=== PATIENT | male | born 1955 | race Caucasian/White ===

== ENCOUNTER 2022-09-29 10:00 | Inpatient (IN) ==
[2022-09-29] MEDS ORDERED: 0.9 % SODIUM CHLORIDE 1,000 ML IV ONE ×2 (10:02→12:09)
--- NOTE | 2022-09-29 10:10 | Emergency Department Note ---
HPI General Chief complaint: Trauma Stated complaint: trauma Time Seen by Provider: 09/29/22 10:02 Source: EMS Mode of arrival: ambulatory Limitations: altered mental status and other (Patient is on an oxygen mask and seems slightly confused) History of Present Illness HPI Narrative: Narrative: The patient is brought in by EMS for being found down. The last time the patient was seen was yesterday. Patient was found on the floor today. It is unknown how long he was down. It is unknown whether he fell or had a syncopal episode. Patient was initially hypotensive for paramedics. He was hypoxic but does have a history of lung cancer and is on oxygen chronically. Patient is noncontributory with history. He is not answering questions. Reportedly according to paramedics, patient had waxing and waning levels of consciousness. Further history is not obtainable. Related Data Previous Rx's Medication Instructions Recorded hydrocodone 5 mg-acetaminophen 325 See Rx Instructions PO Q6H PRN 09/16/22 mg tablet pain #20 tabs Allergies Allergy/AdvReac Type Severity Reaction Status Date / Time lorazepam [From Ativan] Allergy Mild Unknown Verified 09/29/22 10:06 Review of Systems ROS ROS Narrative: Narrative: Limitations: ROS unobtainable due to patients medical condition FOR[facility]LY [facility], [facility]1983 Narrative Patient History Narrative: Narrative: Medical/Surgical/Family History All Active Problems (Updated 09/29/22 @ 15:08 by Calin Sawyer MD) Fall (Acute) Contusion of face (Acute) Closed head injury (Acute) Metastatic primary lung cancer (Acute) Rhabdomyolysis (Acute) Pneumonia (Acute) Pain (Chronic) Shortness of breath (Chronic) Hypoxia (Chronic) Mass in neck (Chronic) Lung mass (Chronic) Medical History (Updated 09/29/22 @ 15:08 by Calin Sawyer MD) Hypoxia Lung mass Mass in neck Pain Shortness of breath Surgical History (Updated 09/16/22 @ 13:42 by Amy Berry) No history of previous surgery Family History (Updated 09/16/22 @ 13:40 by Amy Berry) Other No pertinent family history Social History Smoking Status: Current every day smoker Exam Narrative Narrative: Narrative: General Limitations: altered mental status and other (Patient is on an oxygen mask and seems slightly confused) General appearance: Present alert and in no apparent distress Head Head: Absent atraumatic (Soft tissue swelling on the left side of the face with left periorbital edema) or normal inspection Eye Eye: Present normal appearance, PERRL and EOMI ENT ENT: Present mucous membranes moist Neck Neck: Present normal inspection and trachea midline; Absent full ROM (Patient is in a cervical collar) or tenderness Chest Chest: Present normal inspection and symmetric chest wall rise; Absent tenderness Respiratory Respiratory: Present other (Coarse breath sounds throughout); Absent respiratory distress Cardiovascular Cardiovascular: Present normal rhythm, tachycardia and other (+2 pulses all 4 extremities) Adbominal Abdominal: Present soft and normal bowel sounds; Absent distention, tenderness or guarding Extremities Extremities: Present full ROM; Absent normal inspection (Skin tear on left upper extremity) or tenderness Back Back: Present full ROM; Absent tenderness, CVA tenderness (R) or CVA tenderness (L) Neurological Neurological: Present alert, CN II-XII intact and other (GCS 14); Absent oriented X3 (Awake but does not seem oriented) or motor sensory deficit Psychiatric Psychiatric: Present normal affect and normal mood Skin Skin: Present warm (WNL) and dry Course Reevaluation(s) Reevaluation #1: I was able to speak to the patient's daughter and sister. They both confirm that the patient is a DNI/DNR. I have informed them of the results and the plan to admit the patient. Time: 13:22 Reevaluation #2: I spoke to the patient's daughter and patient's sister again and they both have told me that they want the patient admitted here and do not expect any pulmonary or oncologic care. Time: 14:28 Consultations Consultation #1: I spoke to the hospitalist, Dr. Miller. He said that he would be fine admitting the patient locally as long as the family did not expect to have any further pulmonary or oncologic care. Time: 14:11 Consultation #2: I spoke to Dr. Parker again and he said he would evaluate the patient for local admission Time: 15:01 Vital Signs Vital signs: Vital Signs Temperature 99.7 F H 09/29/22 10:01 Pulse Rate 104 H 09/29/22 10:01 Respiratory Rate 15 09/29/22 10:01 Pulse Oximetry (%) 100 09/29/22 10:01 Oxygen Delivery Method Room Air 09/29/22 10:01 Oxygen Flow Rate (L/min) 14 09/29/22 10:01 Temperature 99.7 F H 09/29/22 10:01 Pulse Rate 95 H 09/29/22 15:18 Respiratory Rate 17 09/29/22 15:18 Blood Pressure 104/61 09/29/22 15:01 Pulse Oximetry (%) 100 09/29/22 15:18 Oxygen Delivery Method Nasal Cannula 09/29/22 11:24 Oxygen Flow Rate (L/min) 2 09/29/22 11:24 [facility] MDM Narrative Medical decision making narrative: Narrative: The patient is brought in after being found down. It is unknown whether he fell or had a syncopal episode. Patient is noncontributory with this history. Work- up will be geared twofold. First for the trauma. We will image his head, face, cervical spine, and get a chest x-ray. We will also run appropriate labs for possible syncopal episode. We will give a liter of fluid and check a CK level. Concern is possible rhabdomyolysis. Lab Data Lab results reviewed: Yes I reviewed the patient's lab results. 09/29/22 10:15 Labs: Lab Results 09/29/22 09/29/22 09/29/22 Range/Units 10:13 10:15 10:16 WBC 24.3 H (4.5-11.0) K/mcL RBC 4.33 L (4.63-6.08) M/mcL Hgb 13.7 (13.7-17.5) g/dL Hct 39.9 L (40.1-51.0) % POC Hct 42.0 (41-55) MCV 92.1 (80.0-100.0) fL MCH 31.6 (26.0-34.0) pg MCHC 34.3 (31.0-36.0) g/dL RDW 14.2 (11.5-14.5) % Plt Count 212 (140-440) K/mcL MPV 11.3 (8.8-12.5) fL Immature Gran % (Auto) 2.2 H (0.0-0.5) % Neut % (Auto) 79.2 H (38.0-78.0) % Lymph % (Auto) 0.7 L (15.5-49.0) % Pepin % (Auto) 17.7 H (1.0-12.0) % Eos % (Auto) 0.1 (0.0-7.0) % Baso % (Auto) 0.1 (0.0-2.0) % Lymph # (Auto) 0.17 L (1.50-4.80) K/mcL Pepin # (Auto) 4.30 H (0.10-0.90) K/mcL Eos # (Auto) 0.02 (0.00-0.70) K/mcL Baso # (Auto) 0.03 (0.00-0.30) K/mcL Immature Gran # 0.54 H (0.00-0.05) K/mcl Absolute Neutrophils 19.22 H (1.80-8.00) K/mcL PT (11.9-14.5) sec INR (0.9-1.1) APTT (20.0-37.0) sec POC VBG pH 7.29 L (7.32-7.42) POC VBG pCO2 at Temp 74.8 H* (41-51) POC VBG pO2 23 L (25-40) POC VBG HCO3 35.9 H (24-28) POC VBG Total CO2 38.0 H (25-29) POC Venous O2 Sat 30.0 L (40-70) POC VBG Base Excess 9.0 H* (-2-2) VBG Lactic Acid 4.5 H* (0.5-2) POC Sodium 129 L (133-145) POC Potassium 4.9 (3.3-5.1) POC Chloride 90 L (96-108) POC Total CO2 35.0 H (22-30) POC Anion Gap 10.0 (8.0-16.0) POC BUN 42 H (6-20) POC Creatinine 1.4 H (0.6-1.2) POC Glucose 130 H (70-105) POC WB Ioniz Calcium 1.57 H (1.16-1.32) Total Bilirubin (0.1-1.0) mg/dL Direct Bilirubin (<0.3) mg/dL AST (<40) U/L ALT (<40) U/L Alkaline Phosphatase (39-117) U/L Total Creatine Kinase (24-195) U/L Total Protein (5.9-8.4) gm/dL Albumin (3.2-5.2) gm/dL Globulin (2.2-3.7) gm/dL POC Troponin I (0.00-0.08) 09/29/22 09/29/22 09/29/22 Range/Units 10:18 10:20 10:59 WBC (4.5-11.0) K/mcL RBC (4.63-6.08) M/mcL Hgb (13.7-17.5) g/dL Hct (40.1-51.0) % POC Hct (41-55) MCV (80.0-100.0) fL MCH (26.0-34.0) pg MCHC (31.0-36.0) g/dL RDW (11.5-14.5) % Plt Count (140-440) K/mcL MPV (8.8-12.5) fL Immature Gran % (Auto) (0.0-0.5) % Neut % (Auto) (38.0-78.0) % Lymph % (Auto) (15.5-49.0) % Pepin % (Auto) (1.0-12.0) % Eos % (Auto) (0.0-7.0) % Baso % (Auto) (0.0-2.0) % Lymph # (Auto) (1.50-4.80) K/mcL Pepin # (Auto) (0.10-0.90) K/mcL Eos # (Auto) (0.00-0.70) K/mcL Baso # (Auto) (0.00-0.30) K/mcL Immature Gran # (0.00-0.05) K/mcl Absolute Neutrophils (1.80-8.00) K/mcL PT 14.5 (11.9-14.5) sec INR 1.1 (0.9-1.1) APTT 38.8 H (20.0-37.0) sec POC VBG pH (7.32-7.42) POC VBG pCO2 at Temp (41-51) POC VBG pO2 (25-40) POC VBG HCO3 (24-28) POC VBG Total CO2 (25-29) POC Venous O2 Sat (40-70) POC VBG Base Excess (-2-2) VBG Lactic Acid (0.5-2) POC Sodium (133-145) POC Potassium (3.3-5.1) POC Chloride (96-108) POC Total CO2 (22-30) POC Anion Gap (8.0-16.0) POC BUN (6-20) POC Creatinine (0.6-1.2) POC Glucose (70-105) POC WB Ioniz Calcium (1.16-1.32) Total Bilirubin 1.2 H (0.1-1.0) mg/dL Direct Bilirubin 0.7 H (<0.3) mg/dL AST 102 H (<40) U/L ALT 27 (<40) U/L Alkaline Phosphatase 60 (39-117) U/L Total Creatine Kinase 2278 H (24-195) U/L Total Protein 6.7 (5.9-8.4) gm/dL Albumin 2.5 L (3.2-5.2) gm/dL Globulin 4.2 H (2.2-3.7) gm/dL POC Troponin I 0.22 H (0.00-0.08) 09/29/22 09/29/22 Range/Units 13:23 15:04 WBC (4.5-11.0) K/mcL RBC (4.63-6.08) M/mcL Hgb (13.7-17.5) g/dL Hct (40.1-51.0) % POC Hct (41-55) MCV (80.0-100.0) fL MCH (26.0-34.0) pg MCHC (31.0-36.0) g/dL RDW (11.5-14.5) % Plt Count (140-440) K/mcL MPV (8.8-12.5) fL Immature Gran % (Auto) (0.0-0.5) % Neut % (Auto) (38.0-78.0) % Lymph % (Auto) (15.5-49.0) % Pepin % (Auto) (1.0-12.0) % Eos % (Auto) (0.0-7.0) % Baso % (Auto) (0.0-2.0) % Lymph # (Auto) (1.50-4.80) K/mcL Pepin # (Auto) (0.10-0.90) K/mcL Eos # (Auto) (0.00-0.70) K/mcL Baso # (Auto) (0.00-0.30) K/mcL Immature Gran # (0.00-0.05) K/mcl Absolute Neutrophils (1.80-8.00) K/mcL PT (11.9-14.5) sec INR (0.9-1.1) APTT (20.0-37.0) sec POC VBG pH 7.36 (7.32-7.42) POC VBG pCO2 at Temp 58.9 H (41-51) POC VBG pO2 27 (25-40) POC VBG HCO3 33.2 H (24-28) POC VBG Total CO2 35.0 H (25-29) POC Venous O2 Sat 46.0 (40-70) POC VBG Base Excess 8.0 H* (-2-2) VBG Lactic Acid 2.5 H (0.5-2) POC Sodium (133-145) POC Potassium (3.3-5.1) POC Chloride (96-108) POC Total CO2 (22-30) POC Anion Gap (8.0-16.0) POC BUN (6-20) POC Creatinine (0.6-1.2) POC Glucose (70-105) POC WB Ioniz Calcium (1.16-1.32) Total Bilirubin (0.1-1.0) mg/dL Direct Bilirubin (<0.3) mg/dL AST (<40) U/L ALT (<40) U/L Alkaline Phosphatase (39-117) U/L Total Creatine Kinase (24-195) U/L Total Protein (5.9-8.4) gm/dL Albumin (3.2-5.2) gm/dL Globulin (2.2-3.7) gm/dL POC Troponin I 0.25 H (0.00-0.08) Radiology Data Radiology results reviewed: Yes I reviewed the patient's radiology results. EKG Data EKG #1: EKG attestation: Yes I reviewed and interpreted this EKG. and Yes There are no EKG findings of acute coronary syndrome EKG results narrative: Sinus, rate 105, normal axis, normal intervals, narrow complex QRS, no acute ST or T changes worrisome for acute infarction or ischemia Discharge Plan Patient/Caregiver Discharge Instructions Pt seen by [facility] ENGINEER/PA only: No Clinical Impression: Fall Qualifiers: Encounter type: initial encounter Qualified Code(s): W19.XXXA - Unspecified fall, initial encounter Contusion of face Qualifiers: Encounter type: initial encounter Qualified Code(s): S00.83XA - Contusion of other part of head, initial encounter Closed head injury Qualifiers: Encounter type: initial encounter Qualified Code(s): S09.90XA - Unspecified in jury of head, initial encounter Metastatic primary lung cancer Qualifiers: Laterality: unspecified laterality Qualified Code(s): C34.90 - Malignant neoplasm of unspecified part of unspecified bronchus or lung Rhabdomyolysis Qualifiers: Rhabdomyolysis type: traumatic Encounter type: initial encounter Qualified Code(s): T79.6XXA - Traumatic ischemia of muscle, initial encounter Pneumonia Qualifiers: Pneumonia type: due to unspecified organism Laterality: unspecified laterality Lung location: unspecified part of lung Qualified Code(s): J18.9 - Pneumonia, unspecified organism Patient Disposition: Xfer As Inpt ([facility]) Condition: Serious Follow up with: Brady Covarrubias PA-C [Primary Care Provider] - Prescriptions: No Action hydrocodone-acetaminophen 5-325 mg tablet See Rx Instructions PO Q6H PRN (Reason: pain) Qty: 20 0RF Rx Instructions: 1-2 tabs orally every 6 hours PRN pain. Caution: may cause sedation.
[2022-09-29 10:19] LABS: POC Calcium, Ionized 1.57 (1.16-1.32); POC Creatinine 1.4 (0.6-1.2); POC Potassium 4.9 (3.3-5.1)
--- NOTE | 2022-09-29 11:06 | Cat Scan Report ---
INDICATION: fall COMPARISON: None. TECHNIQUE: Axial noncontrast-enhanced images through the brain. Sagittally and coronally reformatted images. FINDINGS: Cerebral hemispheres:Negative. No intra-axial abnormality. No intra-axial hematoma. No localized mass effect.Brain volume is within normal limits for age. Periventricular white matter is negative without significant attenuation abnormality. Brainstem and cerebellum:No intra-axial abnormality Extra-axial:No acute hemorrhage. No subdural or epidural hematoma. No subarachnoid hemorrhage. Basilar cisterns are normal Calvarial:No calvarial fracture. No lytic lesion Temporal bones are negative. No destructive lesions Soft tissue, orbits, sinuses:Orbits and visualized facial soft tissues and paranasal sinuses are negative IMPRESSION: Negative noncontrast enhanced brain CT scan The exam was performed using radiation dose optimization techniques including, but not limited to, automated exposure control, adjustment of the mA and/or kV according to patient size and use of iterative reconstruction technique. Interpreted and Authenticated by: Leighton Bright 09/29/22
--- NOTE | 2022-09-29 11:09 | Cat Scan Report ---
INDICATION: fall TECHNIQUE: Axial images through the facial bones. Sagittal and coronal reformatted images. COMPARISON: None. FINDINGS: Nasal bones:Negative. No fracture Orbits:No ocular injury. No intraorbital abnormality. No medial or inferior blowout fracture Zygomatic arches:Negative Maxilla:Negative maxilla and hard palate. No LeFort injury. Maxillary sinuses are negative. No air-fluid levels. Pterygoid plates are intact. Mandible:No mandibular fracture. Mandibular condyles are intact and in normal position with respect to the temporomandibular fossae Skull base:Negative temporal bones. Mastoid sinuses are negative. Middle ears are clear. No basilar skull fracture Facial soft tissues:No focal mass. No soft tissue gas or radiopaque foreign body. Paranasal sinuses:No air-fluid levels. Mild mucoperiosteal thickening within the maxillary sinuses consistent with mild inflammatory disease IMPRESSION: Negative maxillofacial CT scan The exam was performed using radiation dose optimization techniques including, but not limited to, automated exposure control, adjustment of the mA and/or kV according to patient size and use of iterative reconstruction technique. Interpreted and Authenticated by: Leighton Bright 09/29/22
--- NOTE | 2022-09-29 11:12 | Cat Scan Report ---
INDICATION: fALL COMPARISON: None. TECHNIQUE: Axial thin section images through the cervical spine. Sagittally and coronally reformatted images. The exam was performed using radiation dose optimization techniques including, but not limited to, automated exposure control, adjustment of the mA and/or kV according to patient size and use of iterative reconstruction technique. FINDINGS: Vertebral bodies, spinous processes:No vertebral body or spinous process fracture. No acute abnormality. Alignment is anatomic without anterolisthesis Normal odontoid process. No fracture. Occipital condyles and C1 are negative. No atlantoaxial subluxation. Facets:No perched or locked facet. No facet complex fracture. Disc spaces:Moderate to severe degenerative disc narrowing at C4-5, C5-6. Moderate disc narrowing at C6-7 Temporal bones:Negative. No basilar skull fracture Cervical soft tissues:Prominent atherosclerotic calcification in the proximal internal carotid artery bilaterally. Lung apices:Extensive pulmonary parenchymal abnormality. Chest CT scan has been ordered IMPRESSION: 1. Degenerative disc disease and facet arthropathy 2. Carotid artery calcification 3. No cervical spine fracture Interpreted and Authenticated by: Leighton Bright 09/29/22
--- NOTE | 2022-09-29 11:25 | Cat Scan Report ---
INDICATION: PNA/Fall COMPARISON: Previous chest CT scan dated 09/07/2022 TECHNIQUE: Axial noncontrast enhanced images through the chest. Sagittally and coronally reformatted images. MIP reformatted images. FINDINGS: Extensive soft tissue mass density in the right hilar region. Appearance is consistent with neoplasm. There is complete effacement of the right mainstem bronchus. Very little aeration in the right middle lobe, right lower lobe, and right upper lobe bronchi. Large mass is consistent with primary malignancy. Small cell carcinoma should be considered although non-small cell carcinoma is also possible. There is extensive mediastinal adenopathy. There is right supraclavicular adenopathy. Disseminated infiltrate throughout the right lung is most consistent with postobstructive pneumonia. Lymphangitic spread of metastases are possible. There are infiltrates in the left upper lobe. There are multiple pulmonary parenchymal nodules in the left lung consistent with metastases. There has been interval worsening since 09/07/2022. There is a small right pleural effusion. There is severe coronary artery calcification. Upper abdomen is negative. There is a compression deformity of the T11 vertebral body. This is unchanged. Thoracic spine is otherwise negative. No lytic lesions. IMPRESSION: 1. Very large soft tissue mass which is centered in the right hilar region. Appearance is consistent with primary malignancy. 2. Extensive mediastinal adenopathy. There is right supraclavicular adenopathy 3. Complete effacement of the right mainstem bronchus. 4. Extensive right lung infiltrate. Metastatic disease is possible but postobstructive pneumonia is favored. This is significantly worse than on previous examination 5. Left lung infiltrates and nodules consistent with metastases 6. Small right pleural effusion 7. Significant interval worsening since 09/07/2022 The exam was performed using radiation dose optimization techniques including, but not limited to, automated exposure control, adjustment of the mA and/or kV according to patient size and use of iterative reconstruction technique. Interpreted and Authenticated by: Leighton Bright 09/29/22
[2022-09-29] MEDS ORDERED: cefTRIAXone 1 GM VIAL IV ONE (11:29)
[2022-09-29] MEDS ORDERED: AZITHROMYCIN 500 MG in DEXTROSE 5% IN WATER 250 ML IV ONE (11:29)
[2022-09-29 11:59] LABS: Basophils # (Auto) 0.03 K/mcL (0.00-0.30); Basophils % (Auto) 0.1 % (0.0-2.0); Eosinophils # (Auto) 0.02 K/mcL (0.00-0.70); Eosinophils % (Auto) 0.1 % (0.0-7.0); Hematocrit 39.9 % (40.1-51.0); Hemoglobin 13.7 g/dL (13.7-17.5); Lymphocytes # (Auto) 0.17 K/mcL (1.50-4.80); Lymphocytes % (Auto) 0.7 % (15.5-49.0); Mean Cell Volume 92.1 fL (80.0-100.0); Mean Corpuscular HGB Conc 34.3 g/dL (31.0-36.0); Mean Platelet Volume 11.3 fL (8.8-12.5); Monocytes % (Auto) 17.7 % (1.0-12.0); Neutrophils % (Auto) 79.2 % (38.0-78.0); Platelet Count 212 K/mcL (140-440); RBC 4.33 M/mcL (4.63-6.08); Red Cell Distribution Width 14.2 % (11.5-14.5); WBC 24.3 K/mcL (4.5-11.0)
[2022-09-29 12:00] LABS: INR 1.1 (0.9-1.1); Partial Thromboplastin Time 38.8 sec (20.0-37.0); Prothrombin Time 14.5 sec (11.9-14.5)
[2022-09-29 12:11] LABS: ALT/SGPT 27 U/L (<40); AST/SGOT 102 U/L (<40); Albumin 2.5 gm/dL (3.2-5.2); Alkaline Phosphatase 60 U/L (39-117); Bilirubin,Direct 0.7 mg/dL (<0.3); Bilirubin,Total 1.2 mg/dL (0.1-1.0); Globulin 4.2 gm/dL (2.2-3.7)
[2022-09-29 12:58] LABS: Creatine Kinase 2278 U/L (24-195)
[2022-09-29] MEDS: 0.9 % SODIUM CHLORIDE 1,000 ML IV SCH ×2 (14:58→18:45)
--- NOTE | 2022-09-29 15:47 | Internal Med History&Physical ---
HPI History of Present Illness Patient information: Note initiated : 09/29/22 at 3:43 pm Service Date, if different from initiated Date: [] Patient: Jose Eduardo Gaines 67 y/o M admitted on for trauma. Chief Complaint: [] History of present illness: Mr. Gaines is a 67 year old male with history of extensive smoking, COPD, AZ, chronic back pain from previous back surgery, who had progressive enlarging right neck and supraclavicular mass, weight loss of about 50 pounds, poor appetite dating back 8 to 9 months, he presented to ER on 09/07 for shortness of breath, CT angiogram chest showed near complete occlusion of the right upper lobe and right middle lobe bronchus and partial occlusion of bronchus intermedius causing near complete postobstructive atelectasis and or pneumonia. Metastasis to mediastinum and left lung was also noted. A CT of the soft tissues neck with contrast showed multiple metastatic lymph nodes, predominately involving the base of the neck on the right side and supraclavicular fossa. Metastatic lymph nodes were also noted in the left side of the neck. Patient saw oncology Dr. Jose R Church on 09/22, and plan for right neck mass biopsy for today. Patient lives in [address] [place] [address], when daughter arrived at his house he was found on the floor, down time is unknown but it is suspected it was around 24 hours. It is unclear whether he had a fall or syncopal episode. Daughter reports patient has muffled speech at baseline, history is limited from patient due to speech and also mild encephalopathy. Daughter Christina helped with history. On presentation patient was in sepsis patient presented with respiratory rate of 30, tachycardia 101, hypoxia requiring 2 L nasal cannula oxygen. WBC 24, hemoglobin 13.7. VBG's with pH 7.29, PCO2 74, PO2 23, lactic acid 4.5, sodium 129 creatinine 1.4 up from baseline of 0.5, total bili 0.7, AST 102, ALT 27, alk phosphatase 60, creatinine kinase 2278, BNP 2 weeks ago was 541, troponin 0.22, 0.25. CT chest without contrast showed extensive soft tissue mass in the right hilar region consistent with neoplasm, near complete occlusion of right middle lobe, right lower lobe and right upper lobe, extensive mediastinal lymphadenopathy, right supraclavicular adenopathy consistent with lymphangitic spread of metastasis. Infiltrate in left upper lobe. Multiple pulmonary parenchymal nodules in left lung consistent with metastasis. There has been interval worsening since 09/07. Small right pleural effusion. Extensive discussion with patient and family, initially they were undecided as to whether they would like to be admitted here eventually after reassurance and answering all their questions they decided for patient to be admitted here. Review of system. 14 point review of system obtained was negative except mentioned above. Patient reported some shortness of breath, pain in right side of the neck, cough. Denied any vomiting, chest pain, nausea or vomiting. No dizziness. He denies any depression. He reports weight loss, poor appetite. General General appearance: Patient appears chronically ill, his speech is muffled, he is in mild distress, he is also slightly confused but appears overall comfortable Head Head: (Soft tissue swelling on the left side of the face with left periorbital edema Eye Eye: Present normal appearance, PERRL and EOMI ENT ENT: Dry oral mucosa Neck Neck: Some limitation of range of motion because of right neck mass. The area is thickened and there is large firm mass consistent with metastatic lymphadenopathy Chest Chest: Present normal inspection and symmetric chest wall rise; Absent tenderness Respiratory Respiratory: Present other (Coarse breath sounds throughout); on supplemental oxygen, some wheeze bilaterally, decreased air entry in right base Cardiovascular Cardiovascular: Present normal rhythm, tachycardia and other (+2 pulses all 4 extremities), systolic murmur, no peripheral edema Adbominal Abdominal: Present soft and normal bowel sounds; Absent distention, tenderness or guarding Extremities Extremities: Present full ROM; Absent normal inspection (Skin tear on left upper extremity) or tenderness Back Back: Present full ROM; Absent tenderness, CVA tenderness (R) or CVA tenderness (L) Neurological Neurological: Present alert, CN II-XII intact and other (GCS 14); Absent oriented X3 (Awake but does not seem oriented) or motor sensory deficit Psychiatric Psychiatric: Present normal affect and normal mood Skin Skin: Present warm (WNL) and dry Assessment and plan Sepsis. Patient presented with tachycardia heart rate 101, respiratory rate 30, hypoxia requiring 2 L nasal cannula oxygen, leukocytosis 24,000, lactic acidosis 4.5 and source of infection. Postobstructive pneumonia. CT chest without contrast showed extensive soft tissue mass in the right hilar region consistent with neoplasm, near complete occlusion of right middle lobe, right lower lobe and right upper lobe, extensive mediastinal lymphadenopathy, right supraclavicular adenopathy consistent with lymphangitic spread of metastasis. Infiltrate in left upper lobe. Multiple pulmonary parenchymal nodules in left lung consistent with metastasis. There has been interval worsening since 09/07. Small right pleural. We will start patient on Zosyn, vancomycin, azithromycin and also steroid to help with occlusion. Sputum culture. Blood cultures. Clinically metastatic lung cancer, with mets to left lung, bilateral supraclavicular and right cervical mass likely metastatic, not fully staged, clinically stage IV. Clinical and radiological findings are consistent with non-small cell carcinoma of lung. 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 Will obtain MRI brain with and without contrast. CT of abdomen and pelvis for staging, both ordered. Acute encephalopathy. Likely multifactorial in the setting of sepsis, pneumonia, metastatic lung disease, hypercapnia and respiratory failure Alejandro syndrome, patient has anisocoria, likely secondary to right apex and neck metastatic involvement. MRI brain to rule out brain mets. Acute hypoxic hypercapnic respiratory failure. Patient has COPD. VBG's with pH 7.29, PCO2 74, PO2 23. Will manage with DuoNebs, budesonide, IV steroids, supplemental oxygen, pulmonary toileting. Dehydration. Patient has not been eating and drinking per family. Patient has dry tongue. Some acute kidney injury. Will give IV fluids. Hyponatremia sodium 129. Expected to improve with hydration. Acute kidney injury. Creatinine 1.4 up from baseline of 0.5. Will hydrate and monitor BMP and lites Acute Rhabdomyolysis. Creatinine kinase 2278. Patient received IV fluids and this will be continued. Troponin elevation. Patient has history of AZ. This is likely demand mediated ischemia type II AZ. EKG with sinus tachycardia with PVC and nonspecific ST-T wave changes. Will monitor on telemetry. Trend troponins. Echocardiogram Suspect CHF. Patient has some puffiness around the eyes but no peripheral edema. He also has a murmur on cardiac exam. Will obtain echocardiogram COPD from years of cigarette smoking. Patient with acute exacerbation. Will manage with IV steroids. DuoNebs, budesonide, pulmonary toileting. Patient smokes a pack a day currently, he used to smoke 2 packs of cigarettes per day for over 50+ years. Right seventh rib posttraumatic fracture. With significant pain. Continue hydrocodone as needed. Alcohol dependence. Patient has mentioned he can drink up to 5-6 beers daily. Will monitor for alcohol withdrawal. Tobacco dependence. Counseled on cessation. Offered nicotine patch, patient refused. Goals of care. Patient wishes to be DNR/DNI. Discussed in detail with patient and with accompanying daughter Christina, patient prognosis is grim. Discussed treatment options including inpatient pulmonology/bronchoscopy, oncology. They do not want patient to go to a higher level of care where pulmonology and oncology may be available. They understand that patient will be treated with antibiotics and pneumonia may not be cleared because of postobstructive and in that case they will discuss the goals of care again and may opt for comfort care. Critical care time 80 minutes. PFSH PFSH All Active Problems (Updated 09/29/22 @ 15:08 by Calin Sawyer MD) Fall (Acute) Contusion of face (Acute) Closed head injury (Acute) Metastatic primary lung cancer (Acute) Rhabdomyolysis (Acute) Pneumonia (Acute) Pain (Chronic) Shortness of breath (Chronic) Hypoxia (Chronic) Mass in neck (Chronic) Lung mass (Chronic) Medical History (Updated 09/29/22 @ 15:08 by Calin Sawyer MD) Hypoxia Lung mass Mass in neck Pain Shortness of breath Surgical History (Updated 09/16/22 @ 13:42 by Amy Berry) No history of previous surgery Family History (Updated 09/16/22 @ 13:40 by Amy Berry) Other No pertinent family history Social History smoking status: Current every day smoker MEDS/ALLERGIES Home Medications and Allergies Home Medications Medication Instructions Recorded Confirmed Type hydrocodone 5 mg-acetaminophen 325 See Rx Instructions PO Q6H PRN 09/16/22 09/29/22 Rx mg tablet pain #20 tabs Allergies Allergy/AdvReac Type Severity Reaction Status Date / Time lorazepam [From Ativan] Allergy Mild Unknown Verified 09/29/22 10:06 EXAM Constitutional Vitals: Temp Pulse Resp BP Pulse Ox O2 Del Method O2 Flow Rate 99.7 F H 95 H 17 104/61 100 Nasal Cannula 2 09/29/22 10:01 09/29/22 15:18 09/29/22 15:18 09/29/22 15:01 09/29/22 15:18 09/29/22 11:24 09/29/22 11:24 DATA Data Completed and Pending Labs: Labs from last 24 hours 09/29/22 09/29/22 09/29/22 15:04 13:23 10:59 WBC RBC Hgb Hct POC Hct MCV MCH MCHC RDW Plt Count MPV Immature Gran % (Auto) Neut % (Auto) Lymph % (Auto) Wallace % (Auto) Eos % (Auto) Baso % (Auto) Lymph # (Auto) Wallace # (Auto) Eos # (Auto) Baso # (Auto) Immature Gran # Absolute Neutrophils PT INR APTT POC VBG pH 7.36 POC VBG pCO2 at Temp 58.9 H POC VBG pO2 27 POC VBG HCO3 33.2 H POC VBG Total CO2 35.0 H POC Venous O2 Sat 46.0 POC VBG Base Excess 8.0 H* VBG Lactic Acid 2.5 H POC Sodium POC Potassium POC Chloride POC Total CO2 POC Anion Gap POC BUN POC Creatinine POC Glucose POC WB Ioniz Calcium Total Bilirubin 1.2 H Direct Bilirubin 0.7 H AST 102 H ALT 27 Alkaline Phosphatase 60 Total Creatine Kinase 2278 H Total Protein 6.7 Albumin 2.5 L Globulin 4.2 H POC Troponin I 0.25 H 09/29/22 09/29/22 09/29/22 10:20 10:18 10:16 WBC RBC Hgb Hct POC Hct 42.0 MCV MCH MCHC RDW Plt Count MPV Immature Gran % (Auto) Neut % (Auto) Lymph % (Auto) Wallace % (Auto) Eos % (Auto) Baso % (Auto) Lymph # (Auto) Wallace # (Auto) Eos # (Auto) Baso # (Auto) Immature Gran # Absolute Neutrophils PT 14.5 INR 1.1 APTT 38.8 H POC VBG pH POC VBG pCO2 at Temp POC VBG pO2 POC VBG HCO3 POC VBG Total CO2 POC Venous O2 Sat POC VBG Base Excess VBG Lactic Acid POC Sodium 129 L POC Potassium 4.9 POC Chloride 90 L POC Total CO2 35.0 H POC Anion Gap 10.0 POC BUN 42 H POC Creatinine 1.4 H POC Glucose 130 H POC WB Ioniz Calcium 1.57 H Total Bilirubin Direct Bilirubin AST ALT Alkaline Phosphatase Total Creatine Kinase Total Protein Albumin Globulin POC Troponin I 0.22 H 09/29/22 09/29/22 10:15 10:13 WBC 24.3 H RBC 4.33 L Hgb 13.7 Hct 39.9 L POC Hct MCV 92.1 MCH 31.6 MCHC 34.3 RDW 14.2 Plt Count 212 MPV 11.3 Immature Gran % (Auto) 2.2 H Neut % (Auto) 79.2 H Lymph % (Auto) 0.7 L Wallace % (Auto) 17.7 H Eos % (Auto) 0.1 Baso % (Auto) 0.1 Lymph # (Auto) 0.17 L Wallace # (Auto) 4.30 H Eos # (Auto) 0.02 Baso # (Auto) 0.03 Immature Gran # 0.54 H Absolute Neutrophils 19.22 H PT INR APTT POC VBG pH 7.29 L POC VBG pCO2 at Temp 74.8 H* POC VBG pO2 23 L POC VBG HCO3 35.9 H POC VBG Total CO2 38.0 H POC Venous O2 Sat 30.0 L POC VBG Base Excess 9.0 H* VBG Lactic Acid 4.5 H* POC Sodium POC Potassium POC Chloride POC Total CO2 POC Anion Gap POC BUN POC Creatinine POC Glucose POC WB Ioniz Calcium Total Bilirubin Direct Bilirubin AST ALT Alkaline Phosphatase Total Creatine Kinase Total Protein Albumin Globulin POC Troponin I A/P Time Spent With Patient Time: Total time spent is greater than 50% in coordination of care (as documented) at patient's floor/unit and/or counseling patient:
[2022-09-29] MEDS ORDERED: HYDROmorphone 0.5 MG/0.5 ML SYRINGE IV PRN (16:18)
--- NOTE | 2022-09-29 17:08 | Cat Scan Report ---
INDICATION: Metastatic lung disease, COMPARISON: Previous chest CT scan dated 09/29/2022 TECHNIQUE: Axial images were obtained through the abdomen and pelvis. Sagittally and coronally reformatted images. FINDINGS: Examination is markedly suboptimal due to patient cachexia, inability to raise his arms, patient motion, and lack of intravenous contrast material Lung bases:Large right pleural fluid collection. There is right lower lobe infiltrate and a large right hilar and perihilar mass. There is a 5 mm noncalcified left lower lobe nodule, image 26 Liver:Negative to the limits of noncontrast enhanced examination. Liver contour is smooth without evidence for cirrhosis Gallbladder, bilary:No calcified gallstones. No gallbladder wall thickening. No pericholecystic fluid. No dilated bile ducts Spleen:No splenomegaly Pancreas:No pancreatic mass. No peripancreatic abnormality Adrenal glands:Negative Kidneys,ureters,bladder:There are calcifications in both kidneys most consistent with vascular calcifications. There is no hydronephrosis. No hydroureter. No ureteral calculus. There is a catheter within the urinary bladder. Gastrointestinal:No detectable colonic mass. There is no diverticulitis. Negative small bowel. No mechanical small bowel obstruction. No bowel wall thickening. No focal abnormality. Negative stomach and duodenum. No focal abnormality. Appendix: The appendix is nonvisualized. No evidence for appendicitis Vascular:Severe calcified atherosclerosis. Ectasia of the infrarenal abdominal aorta. Maximum AP dimension measures 2.5 cm. Dense calcification at the origin of the superior mesenteric artery with probable hemodynamically significant stenosis. There is extensive calcification of the common iliac arteries and external iliac arteries Lymphatic:No retroperitoneal adenopathy. No significant mesenteric adenopathy. Mesentery, peritoneum:No free intraperitoneal fluid. No intra-abdominal abscess. No pneumoperitoneum Reproductive:Prostate is not significantly enlarged Musculoskeletal:There is a compression deformity of the T11 vertebral body. No detectable lytic or sclerotic metastases. Lumbar vertebral body heights are maintained. No compression fractures. Sacrum and pelvis are negative. No anterior abdominal wall or inguinal hernia. IMPRESSION: 1. Cachexia 2. Large right pleural effusion. Right pulmonary mass and extensive infiltrate as described in a separate dictation. 5 mm noncalcified left lower lobe nodule 3. Extensive atherosclerotic disease. 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 There is ectasia of the abdominal aorta without significant aneurysmal dilatation 4. T11 compression deformity The exam was performed using radiation dose optimization techniques including, but not limited to, automated exposure control, adjustment of the mA and/or kV according to patient size and use of iterative reconstruction technique. Interpreted and Authenticated by: Leighton Bright 09/29/22
[2022-09-29] MEDS ORDERED: LACTULOSE 20 GM/30 ML ORAL.SOL PO PRN (17:31)
[2022-09-29] MEDS ORDERED: methylPREDNISolone SOD SUCC 40 MG/ML VIAL IV SCH (17:31)
[2022-09-29] MEDS ORDERED: MAGNESIUM HYDROXIDE 30 ML ORAL.SUSP PO PRN (17:31)
[2022-09-29] MEDS ORDERED: PIPERACILLIN SODIUM/TAZOBACTAM 3.375 GM in DEXTROSE 5% IN WATER 50 ML IV SCH ×2 (17:31→18:00)
[2022-09-29] MEDS ORDERED: SENNOSIDES 1 TABLET PO PRN (17:31)
[2022-09-29] MEDS ORDERED: ONDANSETRON 4 MG/2 ML VIAL IV PRN (17:31)
[2022-09-29] MEDS ORDERED: FLEETS ADULT ENEMA PR PRN (17:31)
[2022-09-29] MEDS ORDERED: ACETAMINOPHEN 325 MG TABLET PO PRN (17:31)
[2022-09-29] MEDS ORDERED: HYDROcodone/APAP 5/325MG TABLET PO PRN (17:38)
[2022-09-29 18:46] LABS: Basophils # (Auto) 0.04 K/mcL (0.00-0.30); Basophils % (Auto) 0.2 % (0.0-2.0); Eosinophils # (Auto) 0.06 K/mcL (0.00-0.70); Eosinophils % (Auto) 0.2 % (0.0-7.0); Hematocrit 39.3 % (40.1-51.0); Hemoglobin 13.2 g/dL (13.7-17.5); Lymphocytes # (Auto) 0.16 K/mcL (1.50-4.80); Lymphocytes % (Auto) 0.6 % (15.5-49.0); Mean Cell Volume 95.4 fL (80.0-100.0); Mean Corpuscular HGB Conc 33.6 g/dL (31.0-36.0); Mean Platelet Volume 10.5 fL (8.8-12.5); Monocytes # (Auto) 4.21 K/mcL (0.10-0.90); Monocytes % (Auto) 17.1 % (1.0-12.0); Neutrophils % (Auto) 80.4 % (38.0-78.0); Platelet Count 203 K/mcL (140-440); RBC 4.12 M/mcL (4.63-6.08); Red Cell Distribution Width 14.4 % (11.5-14.5); WBC 24.7 K/mcL (4.5-11.0)
[2022-09-29 18:53] LABS: ALT/SGPT 31 U/L (<40); AST/SGOT 115 U/L (<40); Albumin 2.6 gm/dL (3.2-5.2); Albumin/Globulin Ratio 0.7 (1.0-2.3); Alkaline Phosphatase 55 U/L (39-117); Bilirubin,Total 0.8 mg/dL (0.1-1.0); Blood Urea Nitrogen 31 mg/dL (8-23); Calcium 12.7 mg/dL (8.6-10.4); Carbon Dioxide 29 mmol/L (22-30); Chloride 94 mmol/L (96-108); Globulin 3.8 gm/dL (2.2-3.7); Glomerular Filtration Rate 97; Glucose 116 mg/dL (70-105)
[2022-09-29] MEDS ORDERED: VANCOMYCIN 1,000 MG in 0.9 % SODIUM CHLORIDE 250 ML IV SCH (19:00)
[2022-09-29] MEDS ORDERED: IPRATROPIUM/ALBUTEROL 3 ML AMPUL.NEB NEB SCH (19:00)
--- NOTE | 2022-09-29 19:11 | Discharge Summary ---
Discharge Provider Provider IMPORTANT FOLLOW-UP INFORMATION FOR PCP: Patient information: Note initiated : 09/29/22 at 7:06 pm Service Date, if different from initiated Date: [] Patient: Jose Eduardo Gaines 67 y/o M admitted on 09/29/22 for trauma. Chief Complaint: [] Date of admission: 09/29/22 17:00 Discharge date: 09/29/22 Primary care physician: Brady Covarrubias PA-C Consults: 09/29/22 Consult to Physician [CONS] Stat Comment: Consulting Provider: Yash Miller Reason For Exam: Physician to Consult COURSE Hospital Course Hospital course: History of present illness: Mr. Gaines is a 67 year old male with history of extensive smoking, COPD, CO, chronic back pain from previous back surgery, who had progressive enlarging right neck and supraclavicular mass, weight loss of about 50 pounds, poor appetite dating back 8 to 9 months, he presented to ER on 09/07 for shortness of breath, CT angiogram chest showed near complete occlusion of the right upper lobe and right middle lobe bronchus and partial occlusion of bronchus intermedius causing near complete postobstructive atelectasis and or pneumonia. Metastasis to mediastinum and left lung was also noted. A CT of the soft tissues neck with contrast showed multiple metastatic lymph nodes, predominately involving the base of the neck on the right side and supraclavicular fossa. Metastatic lymph nodes were also noted in the left side of the neck. Patient saw oncology Dr. Jose R Church on 09/22, and plan for right neck mass biopsy for today. Patient lives in [address] [place] [address], when daughter arrived at his house he was found on the floor, down time is unknown but it is suspected it was around 24 hours. It is unclear whether he had a fall or syncopal episode. Daughter reports patient has muffled speech at baseline, history is limited from patient due to speech and also mild encephalopathy. Daughter Christina helped with history. On presentation patient was in sepsis patient presented with respiratory rate of 30, tachycardia 101, hypoxia requiring 2 L nasal cannula oxygen. WBC 24, hemoglobin 13.7. VBG's with pH 7.29, PCO2 74, PO2 23, lactic acid 4.5, sodium 129 creatinine 1.4 up from baseline of 0.5, total bili 0.7, AST 102, ALT 27, alk phosphatase 60, creatinine kinase 2278, BNP 2 weeks ago was 541, troponin 0.22, 0.25. CT chest without contrast showed extensive soft tissue mass in the right hilar region consistent with neoplasm, near complete occlusion of right middle lobe, right lower lobe and right upper lobe, extensive mediastinal lymphadenopathy, right supraclavicular adenopathy consistent with lymphangitic spread of metastasis. Infiltrate in left upper lobe. Multiple pulmonary parenchymal nodules in left lung consistent with metastasis. There has been interval worsening since 09/07. Small right pleural effusion. Extensive discussion with patient and family, initially they were undecided as to whether they would like to be admitted here eventually after reassurance and answering all their questions they decided for patient to be admitted here. Patient was admitted to PCU. He was started on IV antibiotics, IV Solu-Medrol. CT scan abdomen and pelvis and showed large right pleural effusion but no evidence of metastatic disease in abdomen. Patient was terminal but comfortable. His breathing slowed down and he had brief episode of V-fib and he peacefully at 1701. His daughter Christina was present at the time. She was offered support. Discharge diagnoses Sepsis. Patient presented with tachycardia heart rate 101, respiratory rate 30, hypoxia requiring 2 L nasal cannula oxygen, leukocytosis 24,000, lactic acidosis 4.5 and source of infection. Postobstructive pneumonia.CT chest without contrast showed extensive soft tissue mass in the right hilar region consistent with neoplasm, near complete occlusion of right middle lobe, right lower lobe and right upper lobe, extensive mediastinal lymphadenopathy, right supraclavicular adenopathy consistent with lymphangitic spread of metastasis. Infiltrate in left upper lobe. Multiple pulmonary parenchymal nodules in left lung consistent with metastasis. There has been interval worsening since 09/07. Small right pleural. We will start patient on Zosyn, vancomycin, azithromycin and also steroid to help with occlusion. Sputum culture. Blood cultures. Metastatic lung cancer,with mets to left lung, bilateral supraclavicular and right cervical mass likely metastatic, not fully staged, clinically stage IV. Clinical and radiological findings are consistent with non-small cell carcinoma of lung. 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 Will obtain MRI brain with and without contrast. CT of abdomen and pelvis for staging, both ordered. Acute encephalopathy. 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 MRI brain to rule out brain mets. Acute hypoxic hypercapnic respiratory failure.Patient has COPD. VBG's with pH 7.29, PCO2 74, PO2 23. Will manage with DuoNebs, budesonide, IV steroids, supplemental oxygen, pulmonary toileting. Dehydration.Patient has not been eating and drinking per family. Patient has dry tongue. Some acute kidney injury. Will give IV fluids. Hyponatremia sodium 129. Expected to improve with hydration. Acute kidney injury. Creatinine 1.4 up from baseline of 0.5. Will hydrate and monitor BMP and lites Acute Rhabdomyolysis. Creatinine kinase 2278. Patient received IV fluids and this will be continued. Troponin elevation. Patient has history of CO. This is likely demand mediated ischemia type II CO. EKG with sinus tachycardia with PVC and nonspecific ST-T wave changes. Will monitor on telemetry. Trend troponins. Echocardiogram Suspect CHF. Patient has some puffiness around the eyes but no peripheral edema. He also has a murmur on cardiac exam. Will obtain echocardiogram COPD from years of cigarette smoking.Patient with acute exacerbation. Will manage with IV steroids. DuoNebs, budesonide, pulmonary toileting. Patient smokes a pack a day currently, he used to smoke 2 packs of cigarettes per day for over 50+ years. Right seventh rib posttraumatic fracture. With significant pain. Continue hydrocodone as needed. Alcohol dependence. Patient has mentioned he can drink up to 5-6 beers daily. Will monitor for alcohol withdrawal. Tobacco dependence.Counseled on cessation. Offered nicotine patch, patient refused. Discharge diagnosis: Metastatic lung cancer Time Spent with Patient Time attestation: Total time spent providing and/or coordinating discharge services: Time spent: Greater than 30 minutes EXAM Constitutional Vitals: Temp Pulse Resp BP Pulse Ox O2 Del Method O2 Flow Rate 98.3 F 107 H 24 H 115/67 94 Nasal Cannula 2 09/29/22 17:08 09/29/22 17:08 09/29/22 17:08 09/29/22 17:08 09/29/22 17:08 09/29/22 17:08 09/29/22 17:08 Discharge Data Data Completed and Pending Labs on day of discharge: Labs from last 24 hours 09/29/22 09/29/22 09/29/22 17:45 17:45 17:45 WBC 24.7 H RBC 4.12 L Hgb 13.2 L Hct 39.3 L POC Hct MCV 95.4 MCH 32.0 MCHC 33.6 RDW 14.4 Plt Count 203 MPV 10.5 Immature Gran % (Auto) 1.5 H Neut % (Auto) 80.4 H Lymph % (Auto) 0.6 L [place] % (Auto) 17.1 H Eos % (Auto) 0.2 Baso % (Auto) 0.2 Lymph # (Auto) 0.16 L [place]ickman # (Auto) 4.21 H Eos # (Auto) 0.06 Baso # (Auto) 0.04 Immature Gran # 0.36 H Absolute Neutrophils 19.82 H PT INR APTT POC VBG pH POC VBG pCO2 at Temp POC VBG pO2 POC VBG HCO3 POC VBG Total CO2 POC Venous O2 Sat POC VBG Base Excess VBG Lactic Acid POC Sodium Sodium 131 L POC Potassium Potassium 4.7 POC Chloride Chloride 94 L Carbon Dioxide 29 POC Total CO2 Anion Gap 8.0 POC Anion Gap POC BUN BUN 31 H Creatinine 0.7 POC Creatinine GFR Calculation 97 Glucose 116 H POC Glucose Calcium 12.7 H POC WB Ioniz Calcium Total Bilirubin 0.8 Direct Bilirubin AST 115 H ALT 31 Alkaline Phosphatase 55 Total Creatine Kinase NT-Pro-B Natriuret Pep 26525.0 H Total Protein 6.4 Albumin 2.6 L Globulin 3.8 H Albumin/Globulin Ratio 0.7 L Procalcitonin 1.45 H POC Troponin I 09/29/22 09/29/22 09/29/22 15:04 13:23 10:59 WBC RBC Hgb Hct POC Hct MCV MCH MCHC RDW Plt Count MPV Immature Gran % (Auto) Neut % (Auto) Lymph % (Auto) Hickman % (Auto) Eos % (Auto) Baso % (Auto) Lymph # (Auto) Hickman # (Auto) Eos # (Auto) Baso # (Auto) Immature Gran # Absolute Neutrophils PT INR APTT POC VBG pH 7.36 POC VBG pCO2 at Temp 58.9 H POC VBG pO2 27 POC VBG HCO3 33.2 H POC VBG Total CO2 35.0 H POC Venous O2 Sat 46.0 POC VBG Base Excess 8.0 H* VBG Lactic Acid 2.5 H POC Sodium Sodium POC Potassium Potassium POC Chloride Chloride Carbon Dioxide POC Total CO2 Anion Gap POC Anion Gap POC BUN BUN Creatinine POC Creatinine GFR Calculation Glucose POC Glucose Calcium POC WB Ioniz Calcium Total Bilirubin 1.2 H Direct Bilirubin 0.7 H AST 102 H ALT 27 Alkaline Phosphatase 60 Total Creatine Kinase 2278 H NT-Pro-B Natriuret Pep Total Protein 6.7 Albumin 2.5 L Globulin 4.2 H Albumin/Globulin Ratio Procalcitonin POC Troponin I 0.25 H 09/29/22 09/29/22 09/29/22 10:20 10:18 10:16 WBC RBC Hgb Hct POC Hct 42.0 MCV MCH MCHC RDW Plt Count MPV Immature Gran % (Auto) Neut % (Auto) Lymph % (Auto) Hickman % (Auto) Eos % (Auto) Baso % (Auto) Lymph # (Auto) Hickman # (Auto) Eos # (Auto) Baso # (Auto) Immature Gran # Absolute Neutrophils PT 14.5 INR 1.1 APTT 38.8 H POC VBG pH POC VBG pCO2 at Temp POC VBG pO2 POC VBG HCO3 POC VBG Total CO2 POC Venous O2 Sat POC VBG Base Excess VBG Lactic Acid POC Sodium 129 L Sodium POC Potassium 4.9 Potassium POC Chloride 90 L Chloride Carbon Dioxide POC Total CO2 35.0 H Anion Gap POC Anion Gap 10.0 POC BUN 42 H BUN Creatinine POC Creatinine 1.4 H GFR Calculation Glucose POC Glucose 130 H Calcium POC WB Ioniz Calcium 1.57 H Total Bilirubin Direct Bilirubin AST ALT Alkaline Phosphatase Total Creatine Kinase NT-Pro-B Natriuret Pep Total Protein Albumin Globulin Albumin/Globulin Ratio Procalcitonin POC Troponin I 0.22 H 09/29/22 09/29/22 10:15 10:13 WBC 24.3 H RBC 4.33 L Hgb 13.7 Hct 39.9 L POC Hct MCV 92.1 MCH 31.6 MCHC 34.3 RDW 14.2 Plt Count 212 MPV 11.3 Immature Gran % (Auto) 2.2 H Neut % (Auto) 79.2 H Lymph % (Auto) 0.7 L Hickman % (Auto) 17.7 H Eos % (Auto) 0.1 Baso % (Auto) 0.1 Lymph # (Auto) 0.17 L Hickman # (Auto) 4.30 H Eos # (Auto) 0.02 Baso # (Auto) 0.03 Immature Gran # 0.54 H Absolute Neutrophils 19.22 H PT INR APTT POC VBG pH 7.29 L POC VBG pCO2 at Temp 74.8 H* POC VBG pO2 23 L POC VBG HCO3 35.9 H POC VBG Total CO2 38.0 H POC Venous O2 Sat 30.0 L POC VBG Base Excess 9.0 H* VBG Lactic Acid 4.5 H* POC Sodium Sodium POC Potassium Potassium POC Chloride Chloride Carbon Dioxide POC Total CO2 Anion Gap POC Anion Gap POC BUN BUN Creatinine POC Creatinine GFR Calculation Glucose POC Glucose Calcium POC WB Ioniz Calcium Total Bilirubin Direct Bilirubin AST ALT Alkaline Phosphatase Total Creatine Kinase NT-Pro-B Natriuret Pep Total Protein Albumin Globulin Albumin/Globulin Ratio Procalcitonin POC Troponin I Discharge Plan Patient/Caregiver Discharge Instructions Prescriptions: No Action hydrocodone-acetaminophen 5-325 mg tablet See Rx Instructions PO Q6H PRN (Reason: pain) Qty: 20 0RF Rx Instructions: 1-2 tabs orally every 6 hours PRN pain. Caution: may cause sedation. Follow Up Plan Follow up with: Brady Covarrubias PA-C [Primary Care Provider] - Prognosis: Serious
[2022-09-29] MEDS ORDERED: DOCUSATE SODIUM 100 MG CAPSULE PO SCH (21:00)
[2022-09-29] MEDS ORDERED: 0.9 % SODIUM CHLORIDE 10 ML SYRINGE IV SCH (22:00)
[2022-09-30] MEDS ORDERED: ENOXAPARIN 40 MG/0.4 ML SYRINGE SQ SCH (09:00)
[2022-09-30] MEDS ORDERED: AZITHROMYCIN 500 MG in DEXTROSE 5% IN WATER 250 ML IV SCH (10:00)
[2022-09-30] MEDS ORDERED: VANCOMYCIN PER PHARMACY IV SCH (16:14)
--- NOTE | 2022-10-03 11:26 | EKG ---
[facility] Test Date: 2022-09-29 Pat Name: Jose Eduardo Gaines Department: ED Room: Gender: Male Physician'S Aide: : 1955 Requested By: Calin Sawyer Order Number: [id number] Reading MD: Jules Sams Measurements Intervals [place] Rate: 105 P: 81 VT: 153 QRS: 48 QRSD: 96 T: QT: 308 QTc: 406 Interpretive Statements Sinus tachycardia Ventricular premature complex Probable left atrial enlargement Nonspecific T abnormalities, lateral leads Electronically Signed On 10-03-2022 11:26:12 PDT by Jules Sams /[id number]
== END 2022-09-29 21:27 | disposition expired | DRG 871 ==
LOC: ED 10:00 → ICU 17:00
PROVIDERS: ADMIT Internal Medicine; ATTEND Internal Medicine